=== PATIENT | male | born 2000 | race Caucasian/White ===

== ENCOUNTER 2018-01-11 16:06 | Emergency (ER) | payer OTHER ==
[2018-01-11] MEDS ORDERED: cefTRIAXone VIAL(*) 250 MG VIAL IM ONE (16:39)
[2018-01-11] MEDS ORDERED: Azithromycin TAB* 250 MG PO ONE (16:39)
[2018-01-11] MEDS ORDERED: Lidocaine 1% MPF* 2 ML VIAL INJ ONE (16:40)
--- NOTE | 2018-01-11 17:07 | UC ---
Complaint Male HPI - HPI Summary HPI Summary: Patient is here today reporting his girlfriend is positive for chlamydia. Patient wishes treatment only for chlamydia and not gonorrhea. We have obtained a urine which we will send for gonorrhea chlamydia . - History of Current Complaint Chief Complaint: UCSTDScreening Stated Complaint: STD SCREENING Time Seen by Provider: 01/11/18 16:16 Hx Obtained From: Patient Severity Currently: None - Patient has no symptoms Pain Intensity: 0 - Allergies/Home Medications Allergies/Adverse Reactions: Allergies Allergy/AdvReac Type Severity Reaction Status Date / Time No Known Allergies Allergy Verified 01/11/18 16:25 Home Medications: Home Medications NK [No Home Medications Reported] 01/11/18 [History Confirmed 01/11/18] PMH/Surg Hx/FS Hx/Imm Hx Previously Healthy: Yes - Surgical History Surgical History: None - Family History Known Family History: Positive: None - Social History Occupation: Unemployed Lives: With Family Alcohol Use: Rare Substance Use Type: None Smoking Status (MU): Light Every Day Tobacco Smoker Type: Cigarettes Cessation Counseling: Patient Advised to Stop Review of Systems Constitutional: Negative Skin: Negative Eyes: Negative ENT: Negative Respiratory: Negative Cardiovascular: Negative Gastrointestinal: Negative Genitourinary: Negative Motor: Negative Neurovascular: Negative Musculoskeletal: Negative Neurological: Negative Psychological: Negative Is Patient Immunocompromised?: No All Other Systems Reviewed And Are Negative: Yes Physical Exam Triage Information Reviewed: Yes Appearance: Well-Appearing, No Pain Distress, Well-Nourished Vital Signs: Initial Vital Signs Temp 98.4 F 01/11/18 16:22 Pulse 68 01/11/18 16:22 Resp 16 01/11/18 16:22 BP 123/69 01/11/18 16:22 Pulse Ox 99 01/11/18 16:22 Vital Signs Reviewed: Yes Eye Exam: Normal Eyes: Positive: Conjunctiva Clear ENT Exam: Normal ENT: Positive: Normal ENT inspection, Hearing grossly normal. Negative: Nasal congestion, Trismus, Muffled voice, Hoarse voice Dental Exam: Normal Neck exam: Normal Neck: Positive: Supple, Nontender Respiratory Exam: Normal Respiratory: Positive: Chest non-tender, Lungs clear, Normal breath sounds, No respiratory distress, No accessory muscle use Cardiovascular Exam: Normal Cardiovascular: Positive: RRR, No Murmur, Pulses Normal, Brisk Capillary Refill Musculoskeletal Exam: Normal Musculoskeletal: Positive: Strength Intact, ROM Intact Neurological Exam: Normal Neurological: Positive: Alert, Muscle Tone Normal Psychological Exam: Normal Skin Exam: Normal Diagnostics - Laboratory Diagnostic Studies Completed/Ordered: UA-trace leukoesterase Complaint Male Course/Dx - Course Course Of Treatment: Zithromax 1 g given, patient refused Rocephin. We will send urine for gonorrhea chlamydia. Patient advised no sexual contact for 2 weeks and follow-up [facility] - Differential Dx/Diagnosis Provider Diagnoses: Treatment for Chlamydia exposure Discharge - Sign-Out/Discharge Documenting (check all that apply): Discharge/Admit/Transfer - Discharge Plan Condition: Stable Disposition: HOME Patient Education Materials: Chlamydia (ED), Sexually Transmitted Diseases (ED) , Condom Use (ED) Referrals: [facility] [Outside] - 2 Weeks - Billing Disposition and Condition Condition: STABLE Disposition: HOME
[2018-01-11 17:21] VITALS: BP 123/69
== END 2018-01-11 17:04 | disposition home or self-care (01) ==
LOC: UCCORT 16:06
DX: Z20.2 Contact with and (suspected) exposure to infections with a predominantly sexual mode of transmission (principal); F17.210 Nicotine dependence, cigarettes, uncomplicated
CPT/HCPCS: 81003; 87086; 87491; 87591; 99202; A9270-GY; G0463; J0696